=== PATIENT | female | born 1975 | race African-American/Black ===

== ENCOUNTER 2017-06-22 15:15 | Emergency (ER) | payer MEDICAID ==
[~2017-06-22] VITALS: Ht 157.5 cm; Wt 71.2 kg
[2017-06-22 21:24] LABS: Basophils # (auto) 0 uL; Basophils % (auto) 0.4 % (0.0-2.0); Eosinophils # (auto) 0 uL; Eosinophils % (auto) 0.7 % (0.0-7.0); Hematocrit 39.4 % (36.0-46.0); Hemoglobin 12.9 g/dL (12.2-16.2); Lymphocytes % (auto) 48.1 % (10.0-50.0); Mean Corpuscular Hemoglobin 28.5 pg (28.0-32.0); Mean Corpuscular Hgb Conc. 32.7 g/dL (32.0-36.0); Mean Corpuscular Volume 87.1 fL (80.0-100.0); Monocytes # (auto) 0.6 uL; Monocytes % (auto) 8.9 % (0.0-12.0); Neutrophils # (auto) 2.6 uL; Neutrophils % (auto) 41.9 % (37.0-80.0); Nucleated Red Blood Cells % 0.1 %; Platelet Count (auto) 332 10^3/uL (140-450); Red Blood Cells 4.53 10^6/uL (4.0-5.20); Red Cell Distribution Width 14.3 % (11.8-14.3); White Blood Cell 6.3 10^3/uL (4.4-10.8)
[2017-06-22] MEDS ORDERED: PROMETHAZINE HCL 25 MG/ML 1ML IV ONE (21:30)
[2017-06-22] MEDS ORDERED: HYDROcodone-ACET 10/325MG TAB PO ONE (21:30)
[2017-06-22 21:41] LABS: Alanine Aminotransferase 37 U/L (13-56); Albumin 3.7 g/dL (3.4-5.0); Anion Gap 10 (5-15); Aspartate Aminotransferase 29 U/L (15-37); BUN/Creatinine Ratio 16.1; Blood Urea Nitrogen 10 mg/dL (7-18); Calcium 9.6 mg/dL (8.5-10.1); Carbon Dioxide 24 mmol/L (21-32); Chloride 107 mmol/L (98-107); GFR African American 136 mL/min; GFR Non-African American 113 mL/min; Glucose 119 mg/dL (74-106); Magnesium 2.2 mg/dL (1.6-2.6); Potassium 3.3 mmol/L (3.5-5.1); Sodium 141 mmol/L (136-145)
[2017-06-22 21:46] LABS: Alkaline Phosphatase 87 U/L (45-117); Bilirubin, Total 0.3 mg/dL (0.2-1.0); Total Protein 8.1 g/dL (6.4-8.2)
[2017-06-22 22:18] LABS: Urine Bacteria FEW /hpf (None Seen); Urine Blood Negative /uL (Negative); Urine Mucus FEW (None Seen); Urine Specific Gravity 1.021 (1.001-1.035); Urine WBC 1 /hpf (0 - 5)
[2017-06-22 22:28] VITALS: BP 127/81
[2017-06-22] MEDS ORDERED: cefTRIAXone 1GM/10ml IVPUSH 10 ML IV ONE ×2 (22:29→22:30)
[2017-06-22] MEDS ORDERED: POTASSIUM CHL 20 Meq TABLET PO ONE (22:45)
== END 2017-06-22 22:37 | disposition home or self-care (01) ==
LOC: ER 15:15
DX: J20.9 Acute bronchitis, unspecified (principal); R51 Headache; E87.6 Hypokalemia; I10 Essential (primary) hypertension
CPT/HCPCS: 36415; 70450; 71045; 80053; 81001; 83735; 83880; 84484; 85025; 85379; 87804; 93005; 96374; 96375; 99285; J2550